=== PATIENT | male | born 1975 | race Caucasian/White ===

== ENCOUNTER 2018-06-20 06:09 | Day surgery (SDC) | payer OTHER ==
[~2018-06-20 06:09] MED LIST: ALTACE10 MG PO; ATORVASTATIN CA10 MG PO; METFORMIN HCL500 MG PO
== END 2018-06-20 12:40 | disposition home or self-care (01) ==
LOC: CIR.AMB 06:09
DX: K80.10 Calculus of gallbladder with chronic cholecystitis without obstruction (principal)